=== PATIENT | female | born 1970 | race Two or more races ===

== ENCOUNTER 2025-01-15 04:07 | Emergency (ER) | payer MEDICAID, OTHER ==
[~2025-01-15] VITALS: Ht 162.6 cm; Wt 65.8 kg
[2025-01-15 09:10] VITALS: BP 118/71; TEMP 97.9; O2SAT 96
== END 2025-01-15 09:37 | disposition home or self-care (01) ==
LOC: ER 04:09
DX: S00.31XA Abrasion of nose, initial encounter (principal); F10.129 Alcohol abuse with intoxication, unspecified; M25.561 Pain in right knee; M25.562 Pain in left knee; W18.39XA Other fall on same level, initial encounter; Y93.9 Activity, unspecified; Y92.89 Other specified places as the place of occurrence of the external cause; Y99.8 Other external cause status; Y90.9 Presence of alcohol in blood, level not specified
CPT/HCPCS: 70450-TC; 70486-TC; 72125-TC; 73560-TC